=== PATIENT | male | born 1955 | race Caucasian/White ===

== ENCOUNTER 2020-09-15 09:48 | Emergency (ER) | payer OTHER, SELFPAY ==
--- NOTE | 2020-09-15 09:52 | ED.GENADULT ---
HPI - General Adult General Chief complaint: Eye Problems Stated complaint: eye redness Time Seen by Provider: 09/15/20 09:52 Source: patient Mode of arrival: ambulatory Limitations: no limitations History of Present Illness HPI narrative: 64-year-old male patient presents to the [facility] with complaints of bilateral eye redness for the past 8 months. Patient states he does have a dermatology appointment at [facility] next week on September 24. Patient states he has been given multiple creams or ointments and steroids for this and has never really completely cleared up. Patient states currently he has 2 antifungal creams that he is using around the eyes as well as a steroid ointment around the eyes and has taken 2 antifungal pill as well as loratadine. Patient states he has not been taking the loratadine every day because he has forgotten. Patient is finished 2 different courses of steroids within the last 8 months. Patient states it is very itchy and continues to swell and spread and get worse. Related Data Home Medications Medication Instructions Recorded Confirmed atorvastatin 09/15/20 fluconazole 09/15/20 ketoconazole applic TOPICAL 09/15/20 lisinopril 09/15/20 loratadine mg 09/15/20 metoprolol tartrate 09/15/20 tacrolimus TOPICAL 09/15/20 triamcinolone acetonide TOPICAL 09/15/20 Allergies Allergy/AdvReac Type Severity Reaction Status Date / Time No Known Allergies Allergy Unverified 05/03/12 16:02 Review of Systems Review of Systems: Narrative: CONSTITUTIONAL: Denies fever, chills, or sweats. EYES: Denies visual changes, redness, or discharge. ENT: Denies rhinorrhea, congestion, sore throat, or otalgia. CARDIOVASCULAR: Denies chest pain, palpitations, or edema. RESPIRATORY: Denies cough or dyspnea. GASTROINTESTINAL: Denies abdominal pain, nausea, vomiting, or diarrhea. GENITOURINARY: Denies dysuria or hematuria. SKIN: Positive bilateral redness, swelling and itching to the skin around the eyes MUSCULOSKELETAL: Denies back pain, joint pain, or myalgia. NEUROLOGIC: Denies headache, numbness, or weakness. PSYCHIATRIC: Denies anxiety or depression. [facility] Past Medical History Medical History (Updated 09/15/20 @ 10:17 by ARNOLD Chicas) GERD (gastroesophageal reflux disease) Hypertension Kidney stones Comments At the time of my signature I agree with nursing past medical history, surgical, social, and family history. There is no relevant family history pertinent to the presenting complaint. Exam Narrative: Exam Narrative: GENERAL: Well-appearing, well-nourished, and in no acute distress. HEAD: Normocephalic, atraumatic. EYES: PERRLA and EOM intact without limitation or complaint of pain, bilateral periorbital soft tissue swelling , erythema, no warmth or tenderness noted, no obvious deformity. No crusting or swelling.no tearing or draining.No photophobia. No nystagmus No FB or lesion on lid eversion. Corneas grossly clear, no obvious FB or hyphens/hypopyon. No injection to sclera. Lids and lashes clear. ENT: Nares clear, no rhinorrhea or epistaxis. Mucous membranes moist. NECK: Supple. No lymphadenopathy CHEST: Clear to auscultation. No respiratory distress. HEART: Regular rate and rhythm. No murmur heard. Normal peripheral pulses. ABDOMEN: Soft, nontender, nondistended, normal active bowel sounds. EXTREMITIES: Normal range of motion. No edema. SKIN: Warm, dry, patient does have what appears to be some type of dermatitis are redness around bilateral periorbital areas with some swelling mostly notable to the right eye skin area. There is no actual eye involvement. Patient states that the skin itches very much constantly. NEURO: No focal deficits. Alert and oriented x3. Course Vital Signs Vital signs: Vital Signs Temperature 36.6 C 09/15/20 09:57 Pulse Rate 78 09/15/20 09:57 Respiratory Rate 20 09/15/20 09:57 Blood Pressure 162/101 H 09/15/20 09:57 Pulse Oximetry 99 09/15/20 09:
[2020-09-15 09:57] VITALS: BP 162/101; PULSE 78; RESP 20; TEMP 36.6; O2SAT 99
== END 2020-09-15 10:22 | disposition home or self-care (01) ==
PROVIDERS: Emergency Provider Nurse Practitioner Family; PCP Internal Medicine
DX: L30.9 Dermatitis, unspecified (principal); K21.9 Gastro-esophageal reflux disease without esophagitis; I10 Essential (primary) hypertension
CPT/HCPCS: 99203; G0463

== ENCOUNTER 2021-07-17 19:26 | Emergency (ER) | payer OTHER, SELFPAY ==
[2021-07-17] VITALS (15 sets, daily range): BP systolic 116–166; BP diastolic 75–96; PULSE 77–98; RESP 11–26; TEMP 36.8; O2SAT 95–100
--- NOTE | ~2021-07-17 | XR_ITS ---
EXAMINATION: XR chest 2V 07/17/2021 20:21 INDICATION: Dyspnea and cough PROCEDURE: 2 view chest COMPARISON: 05/03/2012 FINDINGS: The lungs are clear. The cardiomediastinal silhouette is within normal limits. There are no pleural effusions. There is no pneumothorax suspected. IMPRESSION: 1: NO ACUTE CARDIOPULMONARY DISEASE. Reviewed, dictated and finalized at location A.
--- NOTE | 2021-07-17 19:31 | ECG_ITS ---
Measurements Intervals [place] Rate: 90 P: 44 WV: 177 QRS: -17 QRSD: 93 T: 31 QT: 347 QTc: 427 Interpretive Statements SINUS RHYTHM POSSIBLE LEFT ATRIAL ENLARGEMENT DELAYED PRECORDIAL R/S TRANSITION INCOMPLETE RIGHT BUNDLE BRANCH BLOCK CONSIDER INFERIOR INFARCT, AGE INDETERMINATE BORDERLINE T WAVE ABNORMALITY- ANTERIOR LEADS ABNORMAL ECG Electronically Signed On 07-17-2021 20:27:55 CDT by Carlos Schmidt D.O.
[2021-07-17 20:00] LABS: Basophils Percent Auto 0.2 % (0.2-1.2); Eosinophils Absolute Auto 0.4 K/mm3 (0-0.3); Eosinophils Percent Auto 5.4 % (0-4.4); Hematocrit 44.8 % (42.0-52.0); Hemoglobin 14.9 g/dL (14.0-18.0); Immature Granulocyte Absolute 0.03 K/mm3 (0.00-0.031); Immature Granulocyte Percent A 0.4 % (0-0.5); Lymphocytes Percent Auto 9.7 % (18.3-44.2); Mean Corpuscular HGB Conc 33.3 g/dl (32-36); Mean Corpuscular Hemoglobin 31.5 pg (26-34); Mean Corpuscular Volume 94.7 fl (80-100); Monocytes Absolute Auto 0.9 K/mm3 (0.1-0.6); Monocytes Percent Auto 10.8 % (2.6-8.5); Neutrophils Percent Auto 73.5 % (45.5-73.1); Platelet Count Result 211 k/mm3 (150-375); Red Blood Count 4.73 M/mm3 (4.6-6.20); Red Cell Distribution Width 14.6 % (11.5-14.5); White Blood Count 8.2 K/mm3 (4.5-10.0)
[2021-07-17 20:12] LABS: Anion Gap 7 mmol/L (8-16); Blood Urea Nitrogen 14 mg/dL (9-20); Carbon Dioxide 28 mmol/L (22-30); Chloride 106 mmol/L (98-107); Estimated CRCL calculation 70 ml/min; Estimated Glomerular Filt Rate > 60; Glucose 113 mg/dL (65-110); Sodium 141 mmol/L (137-145)
[2021-07-17] MEDS: IPRATROPIUM BR 0.02% INH SOLN 0.5 MG/2.5 ML VIAL INHALATION (20:46)
[2021-07-17] MEDS: ALBUTEROL SULFATE NEB 2.5 MG/0.5 ML INH 5 MG INHALATION (20:46)
--- NOTE | 2021-07-17 21:02 | ED.GENADULT ---
HPI - General Adult General Chief complaint: Upper Respiratory Infection Stated complaint: Cough, SOB Time Seen by Provider: 07/17/21 19:32 History of Present Illness HPI narrative: Patient is a 65-year-old male who presents ER with shortness of breath and cough. Ongoing for 3 weeks. Improves when he uses albuterol that he buys from a friend. No fevers or chills or sweats. Cough is nonproductive. No chest pain or chest pressure. Mild exertional shortness of breath. Denies history of COPD or CHF. Does have history of CAD with PCI. Related Data Home Medications Medication Instructions Recorded Confirmed aspirin 81 mg PO DAILY 07/17/21 07/17/21 atorvastatin 07/17/21 07/17/21 clopidogrel 75 mg PO DAILY 07/17/21 07/17/21 lisinopril 07/17/21 metoprolol tartrate 07/17/21 07/17/21 pantoprazole PO 07/17/21 07/17/21 Allergies Allergy/AdvReac Type Severity Reaction Status Date / Time No Known Allergies Allergy Unverified 07/17/21 19:35 Review of Systems Review of Systems: All systems reviewed & are unremarkable except as noted in HPI and below Constitutional: Constitutional: Denies chills, Denies fever(s) and Denies weakness ENT: Denies nasal congestion and Denies sore throat Cardiovascular: Cardiovascular: Denies chest pain, Denies rapid heart rate and Denies radiating jaw, neck or arm pain Respiratory: Respiratory: Denies chest congestion, Reports cough, Reports dyspnea and Denies wheezing Gastrointestinal: Gastrointestinal: Denies abdominal pain, Denies nausea and Denies vomiting PMFSH Past Medical History Medical History (Updated 07/17/21 @ 22:23 by Jd Rodriguez MD) Coronary artery disease GERD (gastroesophageal reflux disease) Hypertension Kidney stones Surgical History Surgical History (Updated 07/17/21 @ 21:04 by Jd Rodriguez MD) History of percutaneous coronary intervention Exam Narrative: GENERAL: Well-appearing, well-nourished, and in no acute distress. HEAD: Normocephalic, atraumatic. EYES: PERRL and EOMI. CHEST: Clear to auscultation. Occasional cough. No respiratory distress. HEART: Regular rate and rhythm. Normal peripheral pulses. ABDOMEN: Soft, nontender, nondistended. EXTREMITIES: Normal range of motion. No edema. SKIN: Warm, dry, no rash. NEURO: Alert and oriented x3. PSYCH: Normal mood and affect. Course Course Emergency Course: Patient with modest improvement with nebulizer treatment. Patient now reports that symptoms began after potential chemical exposure while at work 3 weeks ago. This may be a chemical pneumonitis vs bronchitis. No pneumonia. Patient be started on prednisone and given albuterol. Vital Signs Vital signs: Vital Signs Temperature 98.2 F 07/17/21 19:33 Pulse Rate 92 07/17/21 19:33 Respiratory Rate 18 07/17/21 19:33 Blood Pressure 166/94 H 07/17/21 19:33 Pulse Oximetry 99 07/17/21 19:33 Temperature 98.2 F 07/17/21 19:33 Pulse Rate 77 07/17/21 21:31 Respiratory Rate 17 07/17/21 21:31 Blood Pressure 123/75 07/17/21 21:31 Pulse Oximetry 100 07/17/21 21:31 Medical Decision Making Vital Signs Vital Signs: Vital Signs Temperature 98.2 F 07/17/21 19:33 Pulse Rate 92 07/17/21 19:33 Respiratory Rate 18 07/17/21 19:33 Blood Pressure 166/94 H 07/17/21 19:33 Pulse Oximetry 99 07/17/21 19:33 Temperature 98.2 F 07/17/21 19:33 Pulse Rate 77 07/17/21 21:31 Respiratory Rate 17 07/17/21 21:31 Blood Pressure 123/75 07/17/21 21:31 Pulse Oximetry 100 07/17/21 21:31 Lab Data Result diagrams: 07/17/21 19:52 07/17/21 19:52 Labs: Lab Results 07/17/21 07/17/21 Range/Units 19:52 19:52 WBC 8.2 (4.5-10.0) K/mm3 RBC 4.73 (4.6-6.20) M/mm3 Hgb 14.9 (14.0-18.0) g/dL Hct 44.8 (42.0-52.0) % MCV 94.7 (80-100) fl MCH 31.5 (26-34) pg MCHC 33.3 (32-36) g/dl RDW 14.6 H (11.5-14.5) % Plt Count 211 (150-375) k/mm
[2021-07-17] MEDS: predniSONE 20 MG TABLET 60 MG PO (22:13)
== END 2021-07-17 22:50 | disposition home or self-care (01) ==
PROVIDERS: Emergency Provider Emergency Medicine; PCP Internal Medicine
DX: T59.91XA Toxic effect of unspecified gases, fumes and vapors, accidental (unintentional), initial encounter (principal); J68.0 Bronchitis and pneumonitis due to chemicals, gases, fumes and vapors; I25.10 Atherosclerotic heart disease of native coronary artery without angina pectoris; I10 Essential (primary) hypertension; K21.9 Gastro-esophageal reflux disease without esophagitis; Z95.5 Presence of coronary angioplasty implant and graft; I45.10 Unspecified right bundle-branch block; R94.31 Abnormal electrocardiogram [ECG] [EKG]
CPT/HCPCS: 36415; 71046; 80048; 85025; 93005; 94640; 99284; J7512

== ENCOUNTER 2023-07-10 08:39 | Outpatient (CLI) | payer OTHER, MEDICARE, SELFPAY ==
[2023-07-10 09:12] LABS: Basophils Percent Auto 0.3 % (0.2-1.2); Eosinophils Absolute Auto 0.2 K/mm3 (0-0.3); Eosinophils Percent Auto 3.7 % (0-4.4); Hematocrit 45.6 % (42.0-52.0); Hemoglobin 14.6 g/dL (14.0-18.0); Immature Granulocyte Absolute 0.02 K/mm3 (0.00-0.031); Immature Granulocyte Percent A 0.3 % (0-0.5); Lymphocytes Absolute Auto 1.43 K/mm3 (0.9-3.2); Lymphocytes Percent Auto 21.9 % (18.3-44.2); Mean Corpuscular Hemoglobin 29.5 pg (26-34); Mean Corpuscular Volume 92.1 fl (80-100); Mean Platelet Volume 10.5 fl (7.4-10.4); Monocytes Absolute Auto 0.6 K/mm3 (0.1-0.6); Monocytes Percent Auto 9.5 % (2.6-8.5); Neutrophils Absolute Auto 4.2 K/mm3 (1.3-6.7); Neutrophils Percent Auto 64.3 % (45.5-73.1); Platelet Count Result 216 k/mm3 (150-375); Red Blood Count 4.95 M/mm3 (4.6-6.20); Red Cell Distribution Width 14.6 % (11.5-14.5); White Blood Count 6.5 K/mm3 (4.5-10.0)
[2023-07-10 09:31] LABS: Alanine Aminotransferase 32 U/L (6-50); Albumin Level 4.5 g/dL (3.5-5.1); Alkaline Phosphatase 144 U/L (38-126); Anion Gap 6 mmol/L (8-16); Aspartate Amino Transferase 34 U/L (17-59); Bilirubin,Total 1.2 mg/dL (0.2-1.3); Blood Urea Nitrogen 16 mg/dL (9-20); Calcium 9.2 mg/dL (8.4-10.2); Carbon Dioxide 26 mmol/L (22-30); Chloride 105 mmol/L (98-107); Cholesterol 155 mg/dL (0-200); Estimated Glomerular Filt Rate > 60; Glucose 110 mg/dL (65-110); HDL Direct 68 mg/dL; Potassium 3.8 mmol/L (3.4-5.0); Sodium 137 mmol/L (137-145); Triglycerides 85 mg/dL (<150)
[2023-07-10 09:41] LABS: LDL Cholesterol Direct 65 mg/dL
[2023-07-10 10:03] LABS: Prostate Specific Antigen 2.9 ng/mL (< OR = 4.0)
[2023-07-10 10:24] LABS: Hemoglobin A1C 5.9 % (<5.7)
== END 2023-07-10 08:40 | disposition home or self-care (01) ==
LOC: ANHLAB 08:45
PROVIDERS: PCP Nurse Practitioner Family; Visit Provider Nurse Practitioner Family
DX: Z00.00 Encounter for general adult medical examination without abnormal findings (principal); Z12.5 Encounter for screening for malignant neoplasm of prostate; M25.50 Pain in unspecified joint; R53.83 Other fatigue; R73.01 Impaired fasting glucose; E78.2 Mixed hyperlipidemia
CPT/HCPCS: 36415; 80053; 80061; 83036; 84153; 84443; 85025; 86038; G0103